=== PATIENT | female | born 1960 | race Caucasian/White ===

== ENCOUNTER 2020-11-25 14:52 | Emergency (ER) | payer MEDICAID ==
[~2020-11-25] VITALS: Ht 154.9 cm; Wt 99.2 kg
[~2020-11-25 14:52] MED LIST: ARIP5TAB14 PO; ESCI20TA29 PO; EST1T PO; FURO-150 PO; LISI20TA28 PO; LORA10TA7 PO; OMEP-84 PO; POTA10TA10 PO; SIMV-42 PO
[2020-11-25 16:38] VITALS: BP 125/89
== END 2020-11-25 16:39 | disposition home or self-care (01) ==
LOC: ER 14:52
DX: S93.401A Sprain of unspecified ligament of right ankle, initial encounter (principal); M54.31 Sciatica, right side; M25.571 Pain in right ankle and joints of right foot; Z56.0 Unemployment, unspecified; Z88.1 Allergy status to other antibiotic agents; Z79.899 Other long term (current) drug therapy; X58.XXXA Exposure to other specified factors, initial encounter; Y93.89 Activity, other specified; Y92.89 Other specified places as the place of occurrence of the external cause; Y99.8 Other external cause status
CPT/HCPCS: 73610; 99283

== ENCOUNTER 2022-05-06 11:20 | Emergency (ER) | payer MEDICAID ==
[~2022-05-06] VITALS: Ht 154.9 cm; Wt 97.7 kg
[~2022-05-06 11:20] MED LIST changes: +POTA-188 PO; -POTA10TA10 PO
[2022-05-06] MEDS ORDERED: normal saline 1000ML IV soln IVB STA (11:48)
[2022-05-06] MEDS ORDERED: triamcinolone acetonide 40mg/ml inj IM ONE (11:50)
[2022-05-06] MEDS ORDERED: diphenhydrAMINE 50 mg/ml inj IV ONE (11:50)
[2022-05-06] MEDS ORDERED: epiNEPHrine 1 mg/ml inj SQ ONE (11:50)
[2022-05-06] MEDS ORDERED: methylPREDNISolone sod succ 125mg/2ml vial IV ONE (11:50)
[2022-05-06] MEDS ORDERED: tranexamic acid 100mg/ml inj. IV ONE (11:50)
[2022-05-06] MEDS ORDERED: famotidine/PF 10 mg/ml inj IV ONE (11:50)
[2022-05-06] MEDS ORDERED: tranexamic acid inj. 980 MG in normal saline 100ml IV soln 90.2 ML IV ONE (11:54)
[2022-05-06] MEDS ORDERED: EPIN0.3P3 IM (13:50)
[2022-05-06 14:41] VITALS: BP 144/84
== END 2022-05-06 14:44 | disposition home or self-care (01) ==
LOC: ER 11:20
DX: T78.3XXA Angioneurotic edema, initial encounter (principal); Z56.0 Unemployment, unspecified; Z91.040 Latex allergy status; Z79.899 Other long term (current) drug therapy; X58.XXXA Exposure to other specified factors, initial encounter
CPT/HCPCS: 71045; 93005; 96365; 96372; 96375; 99284; J0171; J1200; J2930; J3301; J3490; J7030

== ENCOUNTER 2025-03-17 13:19 | Outpatient (CLI) | payer MEDICAID ==
[~2025-03-17 13:19] MED LIST changes: +ARIP5TAB12 PO; -ARIP5TAB14 PO; +EPIN0.3P3 IM
--- NOTE | 2025-03-17 15:20 | RADIOLOGY REPORT ---
PROCEDURE: MR MRI C SPINE Indication: SPINAL STENOSIS, CERVICAL REGION COMPARISON: None TECHNIQUE: Multiplanar multisequence images of the the cervical spine are obtained. FINDINGS: Cervical heights are maintained. Moderate to severe multilevel disc space narrowing and desiccation most pronounced at C5-6 and C6-7. Straightening of normal cervical spine curvature. No prevertebral edema. Degenerative edematous endplate changes at C6-7. C2-3: Small disc osteophyte complex. No spinal canal stenosis. Moderate bilateral neural foraminal stenosis. C3-4: Small disc osteophyte complex. No spinal canal stenosis Moderate to severe bilateral neural foraminal stenosis. C4-5: Small disc osteophyte complex. No spinal canal stenosis. Moderate to severe left and [id number] right neural foraminal stenosis secondary to facet, uncovertebral hypertrophy. C5-6m: Disc osteophyte complex nearly effacing the ventral and dorsal CSF spaces. Thecal sac measures 7 mm AP. Moderate spinal canal stenosis. Severe bilateral neural foraminal stenosis. C6-7: Disc osteophyte complex narrowing the ventral and dorsal CSF spaces. Thecal sac measures 7 mm AP. Moderate spinal canal stenosis. Moderate to severe bilateral neural foraminal stenosis. C7-T1: Small disc osteophyte complex. No spinal canal stenosis. Tyjp-pu-ojlpsskd bilateral neural foraminal stenosis IMPRESSION: Moderate to severe cervical degenerative disc disease. Moderate spinal canal stenosis at C5-6, C6-7. Multilevel moderate to severe neural foraminal stenosis as described above
== END 2025-03-17 23:59 | disposition home or self-care (01) ==
LOC: MRI02 13:19
PROVIDERS: ATTEND Family Medicine
DX: M50.123 Cervical disc disorder at C6-C7 level with radiculopathy (principal); M48.03 Spinal stenosis, cervicothoracic region; M25.78 Osteophyte, vertebrae
CPT/HCPCS: 72141